=== PATIENT | male | born 1970 | race Caucasian/White ===

== ENCOUNTER 2021-02-14 01:25 | Emergency (ER) | payer OTHER ==
[~2021-02-14 01:25] MED LIST: BACTRIM DS TAB1 EACH PO; BASAGLAR K100 UNIT/1 SC; CARVEDILOL3.125 MG PO; COUMADIN5 MG PO; COUMADIN7.5 MG PO; LASIX80 MG PO; LEVOTHYROXINE137 MCG PO; LISINOPRIL 5 MG5 MG PO; MELOXICAM15 MG PO; METFORMIN HCL1000 MG PO; NORCO 5-325 TA1 EACH PO; OMEPRAZOLE10 MG PO; POTASSIUM CHLO10 ME1 PO; SIMVASTATIN10 MG PO; SPIRONOLACTONE25 M1 PO
== END 2021-02-14 04:57 | disposition home or self-care (01) ==
LOC: FER 01:25
DX: M25.522 Pain in left elbow (principal); E11.9 Type 2 diabetes mellitus without complications; I10 Essential (primary) hypertension; E03.9 Hypothyroidism, unspecified; F17.210 Nicotine dependence, cigarettes, uncomplicated; Z88.0 Allergy status to penicillin; Z79.84 Long term (current) use of oral hypoglycemic drugs; Z79.899 Other long term (current) drug therapy; Z79.01 Long term (current) use of anticoagulants
CPT/HCPCS: 73080